=== PATIENT | female | born 1985 | race Caucasian/White ===

== ENCOUNTER 2020-10-25 08:29 | Emergency (ER) | payer OTHER, SELFPAY ==
[2020-10-25 08:40] VITALS: BP 139/93; PULSE 75; RESP 16; TEMP 36.7; O2SAT 100
[2020-10-25 08:44] VITALS: BP 139/93; PULSE 75; RESP 16; TEMP 36.7; O2SAT 100
--- NOTE | 2020-10-25 08:45 | ED.EAR ---
HPI - Ear Problem General Chief complaint: Ear Stated complaint: Ear Pain Time Seen by Provider: 10/25/20 08:50 Source: patient and RN notes reviewed Mode of arrival: ambulatory Limitations: no limitations History of Present Illness HPI Narrative: 34-year-old female presents concern for right ear pain. Reports right ear pain for several days. Reports frequent ear infections as a child. Reports she had minor upper respiratory symptoms from allergies that resolved within a day. She denies any current rhinorrhea, nasal congestion, sore throat, fever, bodies, chills. Reports small amount of watery drainage from the ear. Reports it hurts when she touches the ear. She reports she has been using allergy medication to try to improve the pain. She reports today she noticed a small amount of decreased hearing in that ear. MD Complaint: ear pain Related Data Allergies Allergy/AdvReac Type Severity Reaction Status Date / Time amoxicillin Allergy Mild Rash Verified 10/25/20 08:34 cefaclor AdvReac Unknown RASH/SWELLI Verified 10/25/20 08:34 NG Penicillins AdvReac Unknown RASH/SWELLI Unverified 10/25/20 08:34 NG Review of Systems Review of Systems: CONSTITUTIONAL: Denies malaise, chills, sweats, or fever. EYES: Denies visual changes, redness, or discharge. ENT: Denies rhinorrhea, congestion, sinus pain, and sore throat. Reports right ear pain CARDIOVASCULAR: Denies chest pain, palpitations, or edema. RESPIRATORY: Denies cough or dyspnea. GASTROINTESTINAL: Denies abdominal pain, nausea, vomiting, diarrhea SKIN: Denies rash or itching. MUSCULOSKELETAL: Denies myalgia. NEUROLOGIC: Denies headache. All systems reviewed & are unremarkable except as noted in HPI and below [facility] Surgical History Surgical History (System 05/14/19 @ 09:10 by Cleopatra Hayes) History of tonsillectomy and adenoidectomy Status post arthroscopy of knee Family History Family History (System 05/14/19 @ 09:10 by Cleopatra Hayes) Father Heart disease Cerebrovascular accident Bladder cancer Mother Diabetes mellitus Hypertension Hyperlipidemia due to dietary fat intake Retinopathy Father Hypertension Cerebrovascular accident Family history of chronic obstructive pulmonary disease Family history of heart disease in male family member before age 55 Mother Hypertension Family history of diabetes mellitus in first degree relative Social History Social History (System 05/14/19 @ 09:10 by Cleopatra Hayes) Smoking status: Never smoker Alcohol intake: current Drinks per week: 1 Substance use type: does not use Comments At time of signature, agree with nursing past medical, surgical, social and family history. There is no relevant family history pertinent to the presenting complaint Exam Narrative: GENERAL: Well-appearing, well-nourished, and in no acute distress. HEAD: Normocephalic EYES: PERRLA, conjunctivae clear ENT: Nares clear. Mucous membranes moist. TM pearly razo with dull light reflex bilaterally; right tragal tenderness with auditory canal erythema, edema, small amount of drainage. Oropharynx not erythematous without lesions. Tonsils not enlarged and without exudate, no drooling, no hoarseness, no trismus, uvula midline. NECK: Supple. No lymphadenopathy CHEST: Clear to auscultation, breath sounds equal. No wheezing, rhonchi, rales, or stridor. No respiratory distress, speaks in full sentences. HEART: Regular rate and rhythm. No murmur heard. SKIN: Warm, dry, no rash. NEURO: Alert and oriented x3. PSYCH: Normal mood and affect Course Course Emergency Course: Patient is aware of diagnosis, understands and agrees to treatment plan. Anticipatory guidance given. Patient agrees to follow-up as directed and is aware of reasons to seek care at the emergency department. Portions of this record may have been created with voice recognition software Vital Signs Vital signs: Vital Signs Temperature 98.0 F
== END 2020-10-25 09:02 | disposition home or self-care (01) ==
PROVIDERS: Emergency Provider Nurse Practitioner; PCP Internal Medicine
DX: H60.501 Unspecified acute noninfective otitis externa, right ear (principal)
CPT/HCPCS: 99213; G0463